=== PATIENT | female | born 1950 | race Native Hawaiian/Other Pacific Islander ===

== ENCOUNTER 2021-12-22 03:07 | Emergency (ER) | payer OTHER ==
[~2021-12-22] VITALS: Ht 165.1 cm; Wt 59.9 kg
[2021-12-22 03:07] VITALS: BP 147/86; TEMP 98.1
[2021-12-22 03:20] LABS: PLATELET COUNT 279 K/uL (152-353)
[2021-12-22 03:30] LABS: POTASSIUM 3.9 mmol/L (3.6-5.2)
[2021-12-22] MEDS ORDERED: BUSPIRONE10 MG PO (05:48)
[2021-12-22] MEDS ORDERED: EUTHYROX75 MCG PO (05:48)
[2021-12-22] MEDS ORDERED: ESCITALOPRAM10 MG PO (05:49)
[2021-12-22] MEDS ORDERED: MELATONIN5 M2 PO (05:50)
[2021-12-22] MEDS ORDERED: OLANZAPINE7.5 MG PO (05:51)
== END 2021-12-22 04:30 | disposition still patient (30) ==
LOC: ED 03:07
PROVIDERS: Emergency Medicine
DX: R46.89 Other symptoms and signs involving appearance and behavior (principal); E03.8 Other specified hypothyroidism; Z11.52 Encounter for screening for COVID-19; Z04.6 Encounter for general psychiatric examination, requested by authority
CPT/HCPCS: 36415; 80053; 85027; 87635; 93005; 99283; U0003